=== PATIENT | female | born 1960 | race Caucasian/White ===

== ENCOUNTER 2016-08-29 15:58 | Observation (INO) | payer OTHER ==
[~2016-08-29] VITALS: Ht 162.6 cm; Wt 127.3 kg
== END 2016-08-31 15:17 | disposition home or self-care (01) ==
LOC: ER 15:58 → MED 18:14
PROVIDERS: ADMIT Internal Medicine
DX: R53.1 Weakness (principal); E11.9 Type 2 diabetes mellitus without complications; I10 Essential (primary) hypertension; K21.9 Gastro-esophageal reflux disease without esophagitis; I25.2 Old myocardial infarction; Z86.73 Personal history of transient ischemic attack (TIA), and cerebral infarction without residual deficits; Z79.02 Long term (current) use of antithrombotics/antiplatelets; Z79.899 Other long term (current) drug therapy; Z90.49 Acquired absence of other specified parts of digestive tract; Z90.710 Acquired absence of both cervix and uterus
CPT/HCPCS: 36415; 70551; 72141; 93306; 96372; 97161-GP; 97165; G0378; J1650